=== PATIENT | male | born 1965 | race Caucasian/White ===

== ENCOUNTER 2018-01-31 08:54 | Emergency (ER) | payer OTHER | END 2018-01-31 09:47 | disposition home or self-care (01) | LOC: D.ER 08:54 | DX: G40.909 Epilepsy, unspecified, not intractable, without status epilepticus (principal); J44.9 Chronic obstructive pulmonary disease, unspecified; F17.200 Nicotine dependence, unspecified, uncomplicated ==

== ENCOUNTER 2018-03-12 | Emergency (ER) | payer OTHER ==
[~2018-03-12] VITALS: Ht 170.2 cm; Wt 50.9 kg
[2018-03-12 00:11] VITALS: Ht 170.2 cm; Wt 50.9 kg
[2018-03-12] MEDS ORDERED: DILANTIN100 MG PO ×2 (00:12→01:23)
[2018-03-12] MEDS ORDERED: PROAIR HFA8.5 GM INH (01:23)
[2018-03-12 01:54] VITALS: BP 130/83
[2018-04-20 13:31] VITALS: Ht 170.2 cm; Wt 50.9 kg
== END 2018-03-12 01:54 | disposition home or self-care (01) ==
LOC: D.ER
DX: Z76.0 Encounter for issue of repeat prescription (principal); M54.5 Low back pain; G40.909 Epilepsy, unspecified, not intractable, without status epilepticus; F17.200 Nicotine dependence, unspecified, uncomplicated

== ENCOUNTER 2018-04-10 20:12 | Emergency (ER) | payer OTHER ==
[~2018-04-10] VITALS: Ht 170.2 cm; Wt 65.8 kg
[~2018-04-10 20:12] MED LIST: DILANTIN100 MG PO; PROAIR HFA8.5 GM INH
[2018-04-10 20:21] VITALS: Ht 170.2 cm; Wt 65.8 kg
[2018-04-10] MEDS ORDERED: DILANTIN100 MG PO (23:45)
[2018-04-11 00:29] VITALS: BP 126/74
[2018-04-20 13:31] VITALS: Ht 170.2 cm; Wt 65.8 kg
== END 2018-04-11 00:30 | disposition home or self-care (01) ==
LOC: D.ER 20:12
DX: Z76.0 Encounter for issue of repeat prescription (principal); G40.909 Epilepsy, unspecified, not intractable, without status epilepticus; J44.9 Chronic obstructive pulmonary disease, unspecified; F17.200 Nicotine dependence, unspecified, uncomplicated

== ENCOUNTER 2018-04-19 18:47 | Inpatient (IN) | payer MEDICAID ==
[~2018-04-19] VITALS: Ht 170.2 cm; Wt 47.5 kg
--- NOTE | ~2018-04-19 | OP ---
PATIENT NAME: MARCELLO TELLEZ MEDICAL RECORD: [id number] :61 LOCATION:[id number] ADMISSION DATE:04/19/18 SURGEON: JOSUE FRIEND DO DATE OF OPERATION: 04/20/2018 PROCEDURE PERFORMED: Right hip intramedullary nailing. PREOPERATIVE DIAGNOSIS: Comminuted displaced right intertrochanteric hip fracture POSTOPERATIVE DIAGNOSIS: Comminuted displaced right intertrochanteric hip fracture. INDICATIONS: Mr. Tellez is a 52-year-old male who had a seizure yesterday and he had stopped taking his seizure medicine and he had a seizure this season, fell and broke his right hip. He was seen in the ER and admitted to medical team and he was consented for procedure to right hip IM nail. He was informed of risks and benefits of the procedure including infection, bleeding, damage to nerve and vessels, need for further surgery. He is aware of the risk and wanted to proceed forward. SURGEON: Josue Friend DO DESCRIPTION OF PROCEDURE: The patient was taken to the operative suite, laid in supine position, given general anesthetic and 2 grams of Ancef preoperatively. The patient was then positioned and moved over to the [place] table and the right hip was reduced under fluoroscopy. Once the reduction was made, the right hip was prepped and draped in sterile fashion. Timeout was performed. Everyone was in agreement with the correct side, site and patient and procedure. The incision then began just proximal to the greater trochanter. Careful dissection was made down to the greater trochanter itself. A starting pin was then used to get a starting point and after starting point was obtained, an opening reamer was used to open up the femoral canal. After the femoral canal was opened, a guidewire was placed down the femoral canal and measured to 380 mm nail. Reaming then commenced with a 9 up to 12.5. An 11 nail was put down the femur. The nail was put into place and then the lag screw was put in through the jig, confirmed on AP and lateral to be in good position. Once it was in good position, it measured to be 95 and this was drilled and entered and then traction was removed and compression was done on the lag screw itself in the top, was locking mechanism was used to lock the lag screw into place and an anti-rotation screw was used and put into place, an 80 anti-rotation screw. This was put through the nail after being drilled and measured and AP and Lateral confirmed good position of the lag screw and anti-rotation screw and then distally went to do perfect circles in the most distal hole with x-ray and screw was put into place in the most distal hole in the nail, a 38 was used, a 38-mm screw. Once this was put into place, x-rays were taken in AP and lateral distally as well and everything seemed to be in good position. The patient's wounds were then irrigated thoroughly. The IT band was closed with proximal 2 incisions with a 0 Vicryl and skin with 2-0 Vicryl and 3-0 Monocryl was ran on the skin. The distal incisions poke hole for the distal locking screw and was closed with 3-0 Monocryl in an inverted interrupted fashion and the leg was cleaned and Telfa and Tegaderm were placed over the incision sites. The patient was awakened and taken to recovery in stable condition. COMPLICATIONS: None. OPERATIVE REPORT [id number] MARCELLO TELLEZ BLOOD LOSS: Approximately 200 mL. TRANSINT:[id number] Voice Confirmation ID: [id number] DOCUMENT ID: [id number] JOSUE FRIEND DO at 0708 CC: [id number] DICTATION DATE: 04/20/181815 ENT PHYSICIAN: 04/20/18 2312 ADM IN [place] [id number] [place] [address]
[2018-04-19 19:26] LABS: BASOPHILS 0.5 % (0-2); EOSINOPHILS 0.3 % (0-7); HEMATOCRIT 40.9 % (42.0-54.0); HEMOGLOBIN 14.4 g/dL (13.5-17.5); IMMATURE GRANULOCYTES 0.2 % (0-5); LYMPHOCYTES 8.9 % (15-50); MCH 32.8 pg (26.0-34.0); MCHC 35.2 g/dL (31.0-37.0); MCV 93.2 fL (80.0-100.0); MEAN PLATELET VOLUME 9.5 fL (7.4-10.4); MONOCYTES 5.4 % (2-11); NEUTROPHILS 84.7 % (40-80); PLATELET COUNT 205 10x3/uL (130-400); RBC 4.39 10x6/uL (4.20-6.10); RDW 13.8 % (11.5-14.5); WBC 11.4 10x3/uL (4.8-10.8)
[2018-04-19 19:35] LABS: ALBUMIN 3.3 g/dL (3.4-5.0); ANION GAP 14.2 mmol/L (8-16); BILIRUBIN - TOTAL 0.43 mg/dL (0.2-1.3); CARBON DIOXIDE 20.6 mmol/L (21.0-32.0); CREATININE - SERUM 1.1 mg/dL (0.6-1.3); POTASSIUM - SERUM 3.8 mmol/L (3.5-5.1); PROTEIN - SERUM 6.7 g/dL (6.4-8.2)
[2018-04-19 19:44] LABS: MAGNESIUM - SERUM 2.4 mg/dL (1.8-2.4); PHOSPHOROUS 2.8 mg/dL (2.5-4.9); THYROID STIMULATING HORMONE 3.79 uIU/mL (0.36-3.74)
[2018-04-19 19:47] LABS: PHENYTOIN (DILANTIN) 0.1 ug/mL (10.0-20.0)
[2018-04-19 20:11] LABS: INR 0.98 (0.85-1.17); PROTIME 12.6 SECONDS (11.6-15.0)
[2018-04-19 21:25] VITALS: BP 149/99
[2018-04-19 22:19] VITALS: BP 161/92
[2018-04-19 23:46] VITALS: BP 157/88; BMI 15.7
[2018-04-20 01:31] VITALS: BP 157/88
[2018-04-20 04:18] VITALS: BP 150/95
[2018-04-20 04:50] LABS: BASOPHILS 0.6 % (0-2); EOSINOPHILS 0.1 % (0-7); HEMATOCRIT 39.2 % (42.0-54.0); HEMOGLOBIN 13.6 g/dL (13.5-17.5); IMMATURE GRANULOCYTES 0.2 % (0-5); LYMPHOCYTES 11.7 % (15-50); MCH 32.5 pg (26.0-34.0); MCHC 34.7 g/dL (31.0-37.0); MCV 93.8 fL (80.0-100.0); MEAN PLATELET VOLUME 9.8 fL (7.4-10.4); MONOCYTES 8.3 % (2-11); NEUTROPHILS 79.1 % (40-80); PLATELET COUNT 219 10x3/uL (130-400); RBC 4.18 10x6/uL (4.20-6.10); RDW 13.9 % (11.5-14.5); WBC 11.7 10x3/uL (4.8-10.8)
[2018-04-20 04:55] LABS: INR 0.96 (0.85-1.17); PROTIME 12.4 SECONDS (11.6-15.0)
[2018-04-20 05:00] LABS: CALC OSMOLALITY 281 mosm/kg (275-300); CALCIUM 7.6 mg/dL (8.5-10.1); CARBON DIOXIDE 27.7 mmol/L (21.0-32.0); CHLORIDE - SERUM 105 mmol/L (98-107); CREATININE - SERUM 0.8 mg/dL (0.6-1.3); GLUCOSE 112 mg/dL (74-106); PHENYTOIN (DILANTIN) 17.7 ug/mL (10.0-20.0); POTASSIUM - SERUM 3.9 mmol/L (3.5-5.1); SODIUM 142 mmol/L (136-145); UREA NITROGEN 6 mg/dL (7-18); eGFR NON AFRICAN AMERICAN > 90 mL/min (90-120)
[2018-04-20 08:43] VITALS: BP 148/91
[2018-04-20 13:04] VITALS: BP 134/85
[2018-04-20 13:31] VITALS: Ht 170.2 cm; Wt 47.5 kg
[2018-04-20 19:01] VITALS: BP 138/82
[2018-04-20 21:16] VITALS: BP 114/76
[2018-04-21 04:27] VITALS: BP 110/83
[2018-04-21 07:53] LABS: ALBUMIN 2.6 g/dL (3.4-5.0); ALKALINE PHOSPHATASE 42 U/L (46-116); BILIRUBIN - TOTAL 0.77 mg/dL (0.2-1.3); CALCIUM 7.4 mg/dL (8.5-10.1); CARBON DIOXIDE 24.7 mmol/L (21.0-32.0); CHLORIDE - SERUM 102 mmol/L (98-107); CREATININE - SERUM 0.8 mg/dL (0.6-1.3); GLUCOSE 116 mg/dL (74-106); PROTEIN - SERUM 5.4 g/dL (6.4-8.2); SODIUM 134 mmol/L (136-145); eGFR NON AFRICAN AMERICAN > 90 mL/min (90-120)
[2018-04-21 07:55] LABS: ALT (SGPT) 23 U/L (10-68); CALC OSMOLALITY 265 mosm/kg (275-300); UREA NITROGEN 4 mg/dL (7-18)
[2018-04-21 08:17] LABS: BASOPHILS 0.5 % (0-2); EOSINOPHILS 0.2 % (0-7); HEMATOCRIT 31.7 % (42.0-54.0); IMMATURE GRANULOCYTES 0.2 % (0-5); LYMPHOCYTES 12.5 % (15-50); MCH 32.2 pg (26.0-34.0); MCHC 33.1 g/dL (31.0-37.0); MCV 97.2 fL (80.0-100.0); MEAN PLATELET VOLUME 10.2 fL (7.4-10.4); MONOCYTES 6.5 % (2-11); NEUTROPHILS 80.1 % (40-80); PLATELET COUNT 143 10x3/uL (130-400); RBC 3.26 10x6/uL (4.20-6.10); RDW 14.1 % (11.5-14.5); WBC 9.2 10x3/uL (4.8-10.8)
[2018-04-21 08:18] LABS: HEMOGLOBIN 10.5 g/dL (13.5-17.5)
[2018-04-21 08:40] VITALS: BP 118/76
[2018-04-21 11:52] VITALS: BP 113/68
[2018-04-21 16:09] VITALS: BP 115/72
[2018-04-21 21:06] VITALS: BP 118/68
[2018-04-22 04:56] VITALS: BP 109/66
[2018-04-22 06:38] LABS: BASOPHILS 0.4 % (0-2); EOSINOPHILS 0.1 % (0-7); HEMATOCRIT 27.5 % (42.0-54.0); HEMOGLOBIN 9.2 g/dL (13.5-17.5); IMMATURE GRANULOCYTES 0.2 % (0-5); LYMPHOCYTES 13.1 % (15-50); MCH 31.6 pg (26.0-34.0); MCHC 33.5 g/dL (31.0-37.0); MEAN PLATELET VOLUME 10.6 fL (7.4-10.4); NEUTROPHILS 79.2 % (40-80); PLATELET COUNT 127 10x3/uL (130-400); RBC 2.91 10x6/uL (4.20-6.10); RDW 13.6 % (11.5-14.5); WBC 8.2 10x3/uL (4.8-10.8)
[2018-04-22 06:50] LABS: MCV 94.5 fL (80.0-100.0)
[2018-04-22 07:28] LABS: ALBUMIN 2.2 g/dL (3.4-5.0); ALKALINE PHOSPHATASE 40 U/L (46-116); BILIRUBIN - TOTAL 0.74 mg/dL (0.2-1.3); CALC OSMOLALITY 264 mosm/kg (275-300); CALCIUM 7.4 mg/dL (8.5-10.1); CARBON DIOXIDE 26.2 mmol/L (21.0-32.0); CHLORIDE - SERUM 100 mmol/L (98-107); CREATININE - SERUM 0.7 mg/dL (0.6-1.3); GLUCOSE 91 mg/dL (74-106); SODIUM 134 mmol/L (136-145); UREA NITROGEN 4 mg/dL (7-18); eGFR NON AFRICAN AMERICAN > 90 mL/min (90-120)
[2018-04-22 07:29] LABS: ALT (SGPT) 14 U/L (10-68); POTASSIUM - SERUM 3.2 mmol/L (3.5-5.1)
[2018-04-22 07:51] LABS: PROTEIN - SERUM 5.2 g/dL (6.4-8.2)
[2018-04-22 08:13] VITALS: BP 110/64
[2018-04-22 12:04] VITALS: BP 109/71
[2018-04-22 15:22] VITALS: BP 131/79; BP 96/57
[2018-04-22 20:00] VITALS: BP 102/62
[2018-04-23 04:00] VITALS: BP 114/71
[2018-04-23 06:33] LABS: BASOPHILS 0.4 % (0-2); EOSINOPHILS 0.3 % (0-7); HEMOGLOBIN 9.6 g/dL (13.5-17.5); IMMATURE GRANULOCYTES 0.2 % (0-5); LYMPHOCYTES 12.5 % (15-50); MCH 32.3 pg (26.0-34.0); MCHC 34.3 g/dL (31.0-37.0); MCV 94.3 fL (80.0-100.0); MEAN PLATELET VOLUME 9.5 fL (7.4-10.4); MONOCYTES 8.6 % (2-11); PLATELET COUNT 145 10x3/uL (130-400); RBC 2.97 10x6/uL (4.20-6.10); RDW 13.6 % (11.5-14.5); WBC 9.9 10x3/uL (4.8-10.8)
[2018-04-23 07:09] LABS: ALBUMIN 2.3 g/dL (3.4-5.0); ALKALINE PHOSPHATASE 48 U/L (46-116); ALT (SGPT) 14 U/L (10-68); BILIRUBIN - TOTAL 0.78 mg/dL (0.2-1.3); CALCIUM 7.8 mg/dL (8.5-10.1); CARBON DIOXIDE 26.7 mmol/L (21.0-32.0); CHLORIDE - SERUM 100 mmol/L (98-107); CREATININE - SERUM 0.8 mg/dL (0.6-1.3); GLUCOSE 96 mg/dL (74-106); SODIUM 134 mmol/L (136-145); eGFR NON AFRICAN AMERICAN > 90 mL/min (90-120)
[2018-04-23 07:10] LABS: CALC OSMOLALITY 265 mosm/kg (275-300); POTASSIUM - SERUM 3.3 mmol/L (3.5-5.1); UREA NITROGEN 6 mg/dL (7-18)
[2018-04-23 08:24] VITALS: BP 103/64
[2018-04-23 20:00] VITALS: BP 97/60
[2018-04-24] VITALS: BP 90/57
[2018-04-24 04:00] VITALS: BP 105/71
[2018-04-24 06:38] LABS: BASOPHILS 1.2 % (0-2); HEMATOCRIT 26.6 % (42.0-54.0); HEMOGLOBIN 8.9 g/dL (13.5-17.5); IMMATURE GRANULOCYTES 0.2 % (0-5); LYMPHOCYTES 25.1 % (15-50); MCH 31.8 pg (26.0-34.0); MCHC 33.5 g/dL (31.0-37.0); MEAN PLATELET VOLUME 9.9 fL (7.4-10.4); MONOCYTES 10.7 % (2-11); NEUTROPHILS 60.8 % (40-80); PLATELET COUNT 163 10x3/uL (130-400); RDW 13.7 % (11.5-14.5)
[2018-04-24 06:48] LABS: WBC 6.1 10x3/uL (4.8-10.8)
[2018-04-24 06:58] LABS: ALKALINE PHOSPHATASE 39 U/L (46-116); ALT (SGPT) 17 U/L (10-68); BILIRUBIN - TOTAL 0.67 mg/dL (0.2-1.3); CALC OSMOLALITY 273 mosm/kg (275-300); CARBON DIOXIDE 25.9 mmol/L (21.0-32.0); CHLORIDE - SERUM 104 mmol/L (98-107); CREATININE - SERUM 0.6 mg/dL (0.6-1.3); GLUCOSE 78 mg/dL (74-106); POTASSIUM - SERUM 3.7 mmol/L (3.5-5.1); PROTEIN - SERUM 5.4 g/dL (6.4-8.2); SODIUM 138 mmol/L (136-145); eGFR NON AFRICAN AMERICAN > 90 mL/min (90-120)
[2018-04-24 06:59] LABS: UREA NITROGEN 11 mg/dL (7-18)
[2018-04-24 08:57] VITALS: BP 105/69
[2018-04-24] MEDS ORDERED: KEFLEX500 MG PO (09:20)
[2018-04-24] MEDS ORDERED: ELIQUIS2.5 MG PO (09:20)
[2018-04-24] MEDS ORDERED: VISTARIL50 MG PO (09:20)
[2018-04-24] MEDS ORDERED: OXYCODONE HCL5 MG PO (09:20)
[2018-04-24] MEDS ORDERED: NICODERM C1 PATCH .1 TRANSDERM (15:19)
[2018-04-24] MEDS ORDERED: DILANTIN100 MG PO (15:19)
== END 2018-04-24 19:05 | disposition home or self-care (01) | DRG 481 ==
LOC: D.ER 18:47 → D.EDHOLD 21:24 → D.MS 21:24
PROVIDERS: Family Medicine; Orthopaedic Surgery
PROC: 0QS636Z Reposition Right Upper Femur with Intramedullary Internal Fixation Device, Percutaneous Approach (ICD-10-PCS; principal; 2018-04-20 12:00)
DX: S72.141A Displaced intertrochanteric fracture of right femur, initial encounter for closed fracture (principal); I69.354 Hemiplegia and hemiparesis following cerebral infarction affecting left non-dominant side; F17.213 Nicotine dependence, cigarettes, with withdrawal; D62 Acute posthemorrhagic anemia; W19.XXXA Unspecified fall, initial encounter; J44.9 Chronic obstructive pulmonary disease, unspecified; G40.909 Epilepsy, unspecified, not intractable, without status epilepticus; Z91.14 Patient's other noncompliance with medication regimen

== ENCOUNTER 2018-06-03 16:31 | Emergency (ER) | payer MEDICAID ==
[~2018-06-03] VITALS: Ht 170.2 cm; Wt 40.9 kg
[~2018-06-03 16:31] MED LIST changes: +ELIQUIS2.5 MG PO; +KEFLEX500 MG PO; +NICODERM C1 PATCH .1 TRANSDERM; +OXYCODONE HCL5 MG PO; +VISTARIL50 MG PO
[2018-06-03 16:33] VITALS: BP 116/64; Ht 170.2 cm; Wt 40.9 kg
[2018-06-03] MEDS ORDERED: NORCO 7.5/325 T1 TA1 PO (17:50)
[2018-06-03] MEDS ORDERED: VOLTAREN75 MG PO (17:50)
== END 2018-06-03 18:48 | disposition home or self-care (01) ==
LOC: D.ER 16:31
DX: M25.551 Pain in right hip (principal); G40.909 Epilepsy, unspecified, not intractable, without status epilepticus; J44.9 Chronic obstructive pulmonary disease, unspecified; F17.200 Nicotine dependence, unspecified, uncomplicated

== ENCOUNTER 2018-06-29 17:03 | Emergency (ER) | payer MEDICAID ==
[~2018-06-29] VITALS: Ht 170.2 cm; Wt 50.0 kg
[~2018-06-29 17:03] MED LIST changes: +NORCO 7.5/325 T1 TA1 PO; +VOLTAREN75 MG PO
[2018-06-29 17:12] VITALS: BP 131/77; Ht 170.2 cm; Wt 50.0 kg
[2018-06-29] MEDS ORDERED: DILANTIN100 MG PO (18:25)
== END 2018-06-29 18:31 | disposition home or self-care (01) ==
LOC: D.ER 17:03
DX: Z76.0 Encounter for issue of repeat prescription (principal); G40.909 Epilepsy, unspecified, not intractable, without status epilepticus; J44.9 Chronic obstructive pulmonary disease, unspecified